=== PATIENT | female | born 1965 | race Caucasian/White ===

== ENCOUNTER 2022-01-12 | Emergency (ER) | payer OTHER ==
[~2022-01-12] VITALS: Ht 172.7 cm; Wt 111.4 kg
[2022-01-12 00:40] VITALS: BP 140/83
--- NOTE | 2022-01-12 03:10 | NUR ---
PT. SEEN LEAVING THE LOBBY
== END 2022-01-12 03:12 | disposition left against medical advice (07) ==
LOC: ER 00:01
DX: T23.001A Burn of unspecified degree of right hand, unspecified site, initial encounter (principal); Z53.21 Procedure and treatment not carried out due to patient leaving prior to being seen by health care provider; X08.8XXA Exposure to other specified smoke, fire and flames, initial encounter; Y93.89 Activity, other specified; Y92.89 Other specified places as the place of occurrence of the external cause; Y99.8 Other external cause status